=== PATIENT | male | born 1960 | race Caucasian/White ===

== ENCOUNTER 2018-08-14 08:32 | Emergency (ER) | payer OTHER ==
[~2018-08-14] VITALS: Ht 177.8 cm; Wt 108.9 kg
[2018-08-14] MEDS ORDERED: AMLODIPINE BESY10 MG PO (08:46)
[2018-08-14] MEDS ORDERED: PRAVACHOL40 MG PO (08:46)
[2018-08-14] MEDS ORDERED: ZYRTEC10 M5 PO (08:51)
[2018-08-14] MEDS ORDERED: NORVASC5 MG PO (08:51)
[2018-08-14] MEDS ORDERED: FLONASE 0.05%50 MCG NASAL (08:52)
[2018-08-14] MEDS ORDERED: SYNTHROID50 MCG PO (08:52)
[2018-08-14] MEDS ORDERED: MOBIC7.5 MG PO (08:53)
[2018-08-14 09:35] LABS: ABSOLUTE NEUTROPHILS 4.9 thou/uL (1.4-8.2); BASOPHILS 0.5 % (0.0-2.0); EOSINOPHILS 1.5 % (0.0-3.0); HEMATOCRIT 49.7 % (42.0-52.0); HEMOGLOBIN 17.2 gm/dL (14.0-18.0); LYMPHOCYTES 30.9 % (24.0-44.0); MCH 29.3 pg (26.0-34.0); MCHC 34.6 g/dL (28.0-37.0); MCV 84.7 fL (80.0-100.0); MONOCYTES 9.8 % (1.0-8.0); PLATELET COUNT 232 thou/uL (150-400); POLYS 57.3 % (36.0-66.0); RBC 5.86 mil/uL (4.50-6.00); RDW 14.2 % (10.5-14.5); WBC 8.6 thou/uL (4.0-11.0)
[2018-08-14 09:39] LABS: ANION GAP 6 mmol/L (7-16); BUN 17 mg/dL (7-18); CALCIUM 10.1 mg/dL (8.5-10.1); CHLORIDE 101 mmol/L (98-107); CO2 30 mmol/L (21-32); CREATININE 1.2 mg/dL (0.7-1.3); GLUCOSE 107 mg/dL (74-106); POTASSIUM 4.2 mmol/L (3.5-5.1); SODIUM 137 mmol/L (136-145)
[2018-08-14 09:47] LABS: ALBUMIN 4.1 g/dL (3.4-5.0); DIRECT BILIRUBIN < 0.1 mg/dL (<0.1-0.3); LIPASE 120 U/L (73-393); SGOT 27 U/L (15-37); SGPT 24 U/L (30-65); TOTAL BILIRUBIN 0.6 mg/dL (<0.1-1.0); TOTAL PROTEIN 8.3 g/dL (6.4-8.2); TROPONIN-I <0.06 ng/mL (<0.06)
[2018-08-14] MEDS ORDERED: CARAFATE 1 GM TA1 G1 PO (13:28)
[2018-08-14] MEDS ORDERED: PRILOSEC 20 MG20 MG PO (13:28)
[2018-08-14 13:39] VITALS: BP 144/103
--- NOTE | 2018-08-14 14:57 | EKG ---
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: ALTHEAEv : 1960 Requested By: Halie Salcido Order Number: [id number] MD: Jonnathan Betancourt Measurements Intervals [place] Rate: 63 P: 30 W[place]: 169 QRS: 34 QRSD: 93 T: 23 QT: 408 QTc: 418 Interpretive Statements Sinus rhythm RSR' in V1 or V2, right VCD or RVH No previous ECG available for comparison Electronically Signed On 08-14-2018 14:57:39 [employer]ESS OPER[employer] HELPER by Jonnathan Betancourt [email or web address] ��������������������������������������������� <ELECTRONICALLY SIGNED> ���������������������������������������� By: Jonnathan Betancourt MD ��������������������������������������������� 08/14/18 1457 0836 0836 Jonnathan Betancourt MD /R[facility]ON
== END 2018-08-14 14:17 | disposition home or self-care (01) ==
LOC: ER 08:32
PROVIDERS: Emergency Medicine
DX: R07.89 Other chest pain (principal); I10 Essential (primary) hypertension; E78.5 Hyperlipidemia, unspecified; E05.90 Thyrotoxicosis, unspecified without thyrotoxic crisis or storm

== ENCOUNTER → 2020-01-04 | Outpatient (CLI) | payer OTHER ==
[~2020-01-04] MED LIST: AMLODIPINE BESY10 MG PO; CARAFATE 1 GM TA1 G1 PO; FLONASE 0.05%50 MCG NASAL; MOBIC7.5 MG PO; NORVASC5 MG PO; PRAVACHOL40 MG PO; PRILOSEC 20 MG20 MG PO; SYNTHROID50 MCG PO; ZYRTEC10 M5 PO
== END ==
LOC: SJCVCIMAG 08:19
PROVIDERS: ATTEND Internal Medicine
DX: E78.5 Hyperlipidemia, unspecified (principal); I10 Essential (primary) hypertension; R60.0 Localized edema

== ENCOUNTER → 2021-01-01 | Outpatient (CLI) | payer OTHER | LOC: ULTRA 13:24 | PROVIDERS: ATTEND Nurse Practitioner | DX: R10.9 Unspecified abdominal pain (principal) ==